=== PATIENT | female | born 1940 | race Caucasian/White ===

== ENCOUNTER 2021-10-26 13:49 | Outpatient (CLI) | payer OTHER, SELFPAY ==
--- NOTE | ~2021-10-26 | US_ITS ---
EXAMINATION: US venous doppler [facility] DATE: 10/26/2021 15:18 INDICATION: worsening edema of left lower leg and now thigh . Erythema. TECHNIQUE: Grayscale images without and with compression and Doppler images of the left lower extremi ty veins were obtained. COMPARISON: None FINDINGS: The left common femoral vein, profunda femoral vein, femoral vein, popliteal vein, posterior tibial v eins, gastrocnemius vein, and greater saphenous vein are patent. Peroneal vein not visualized. IMPRESSION: 1. Peroneal vein not visualized. No evidence of deep venous thrombosis in visualized veins. Reviewed, dictated and finalized at location K. IMPRESSION: 1. Peroneal vein not visualized. No evidence of deep venous thrombosis in visu alized veins.
== END 2021-10-26 13:50 | disposition home or self-care (01) ==
PROVIDERS: PCP Family Medicine Adolescent Medicine; Visit Provider Family Medicine Adolescent Medicine
DX: R60.0 Localized edema (principal)
CPT/HCPCS: 93971

== ENCOUNTER 2021-11-08 12:10 | Inpatient (IN) | payer OTHER, SELFPAY ==
--- NOTE | ~2021-11-08 | XR_ITS ---
XR abdomen/kub 1V DATE: 11/12/2021 10:31 INDICATION: Nausea TECHNIQUE: Portable supine AP view COMPARISON: None FINDINGS: Osteopenia. There is loss of height of T12, L1 and L2 vertebrae with vertebroplasty at L1. Multilevel degenerative disc disease of the lumbar spine. Impression screw device of the left femoral head. There is no evidence of bowel obstruction. The psoas shadows are intact. No visceromegaly is evident. Mild to moderate elevation right diaphragm. The lung bases appear clear. Heart size appears within no rmal range. IMPRESSION: Nonspecific abdomen Reviewed, dictated and finalized at Location A. Reviewed, dictated and finalized at location B. Impression screw device of the left femoral head. There is no evidence of bowel obstruction. The psoas shadows are intact. No vis ceromegaly is evident. Mild to moderate elevation right diaphragm. The lung bases appear clear. Heart size appears within normal range. IMPRESSION: Nonspecific abdomen
--- NOTE | ~2021-11-08 | XR_ITS ---
XR hip LT 2V w AP pelvis DATE: 11/08/2021 13:23 INDICATION: Fall. Left hip pain. TECHNIQUE: AP pelvis. AP and crosstable lateral views of left hip COMPARISON: None FINDINGS: There is diffuse osteopenia. There is levoscoliosis and multilevel degenerative disc disease of the lumbar spine. There is calcifi cation of the abdominal aorta, iliac and femoral arteries. The pubic symphysis and sacroiliac joints are intact. There is a mildly comminuted intertrochanteric left hip fracture with mild varus deformity and apex a nterior angulation. No hip dislocation is noted on either side. IMPRESSION: Acute left intertrochanteric hip fracture Reviewed, dictated and finalized at location B.
--- NOTE | ~2021-11-08 | US_ITS ---
EXAMINATION: US venous doppler [facility] DATE: 11/10/2021 11:06 INDICATION: Left lower limb swelling. TECHNIQUE: Grayscale ultrasound images without and with compression and Doppler ultrasound images of the left lower extremity veins were obtained. COMPARISON: 10/26/2021 FINDINGS: The visualized portions of left common femoral vein, profunda (deep) femoral vein, femoral vein, popl iteal vein, posterior tibial veins and greater saphenous vein outflow are patent. IMPRESSION: 1. No deep venous thrombosis in the left lower limb. Reviewed, dictated and finalized at location A.
--- NOTE | ~2021-11-08 | XR_ITS ---
XR surgery orthopedic DATE: 11/09/2021 13:27 INDICATION: ORIF left intertrochanteric hip fracture TECHNIQUE: 189.7 seconds fluoroscopy time 41.25 mGy COMPARISON: left hip FINDINGS: Compression screw and nail are placed in the proximal left femur, providing near-anatomic p osition and alignment of the intertrochanteric left hip fracture. IMPRESSION: ORIF left intertrochanteric hip fracture Reviewed, dictated and finalized at Location A. Reviewed, dictated and finalized at location B.
--- NOTE | ~2021-11-08 | XR_ITS ---
EXAMINATION: XR hip LT min 2V DATE: 11/09/2021 14:06 INDICATION: Left hip fracture post reduction and internal fixation TECHNIQUE: Anteroposterior and cross-table lateral views of the left hip were obtained. COMPARISON: 11/08/2021 FINDINGS: Interval reduction and internal fixation of a comminuted fracture of the intratrochanteric left femur with antegrade intramedullary lamin, femoral neck dynamic compression screw and distal interlocking sc rew. Alignment appears near-anatomic aside from unchanged 6 mm proximal distraction of the lesser tro chanteric fragment which is not included within the fixation. Mild left hip osteoarthritis. Expected small amount of soft tissue gas the subcutaneous tissues at the proximal lateral left thigh are also few skin jose. IMPRESSION: 1. Near-anatomic alignment post reduction internal fixation of a comminuted intratrochanteric fractur e of the proximal left femur. Reviewed, dictated and finalized at location A. IMPRESSION: 1. Near-anatomic alignment post reduction internal fixation of a comminuted int ratrochanteric fracture of the proximal left femur.
--- NOTE | ~2021-11-08 | CT_ITS ---
EXAMINATION: CT brain wo con INDICATION: Head injury COMPARISON: 06/27/2018 TECHNIQUE: Standard unenhanced head CT. The dose-length product (DLP) was 681.00 mGy-cm. The mA was a djusted according to patient size. Iterative reconstruction technique was employed. FINDINGS: There is a large left parietal scalp hematoma. There is no acute intraparenchymal hemorrhag e. No evidence of mass lesion. No evidence of acute infarction. There is mild periventricular and sub cortical hypodensity probably related to small vessel ischemic disease. There is mild prominence of t he sulci and ventricles related to cerebral atrophy. Intracranial calcified cerebral atherosclerosis is noted. There are no extra-axial collections. There is no mass effect or midline shift. Changes in the globes are likely from ocular lens surgery. The visualized sinuses and mastoid air cells are well aerated. IMPRESSION: 1. Large left parietal scalp hematoma without acute intracranial abnormality. 2. Age related findings. Reviewed, dictated and finalized at location A.
--- NOTE | ~2021-11-08 | XR_ITS ---
EXAMINATION: XR chest 1V portable INDICATION: Pain after fall TECHNIQUE: Portable AP chest at 1333 hours COMPARISON: 06/27/2018 FINDINGS: There is mild atelectasis of the left lung base. No pleural effusion or pneumothorax. The c ardiomediastinal silhouette is normal. There is osteoarthritis of the shoulders. IMPRESSION: 1. Mild atelectasis of the left lung base. Reviewed, dictated and finalized at location A.
--- NOTE | ~2021-11-08 | CT_ITS ---
EXAMINATION: CT cervical spine wo con DATE: 11/08/2021 13:11 INDICATION: Head injury TECHNIQUE: Computed tomography (CT) of the cervical spine was performed without intravenous contrast. The dose-length product (DLP) was 118.39 mGy-cm. Automated exposure control and iterative reconstruc tion technique were employed. COMPARISON: 06/27/2018 FINDINGS: There is no fracture, dislocation, or subluxation. There is severe loss of intervertebral d isc space height from C3-4 through C6-7. The odontoid is intact. There is severe multilevel facet and uncovertebral joint osteoarthritis. IMPRESSION: 1. Severe cervical spondylosis without acute findings or significant interval change. Reviewed, dictated and finalized at location A. IMPRESSION: 1. Severe cervical spondylosis without acute findings or significant interval mariluz walker
[2021-11-08 12:11] VITALS: BP 185/83; PULSE 75; RESP 18; TEMP 36.8; O2SAT 93
[2021-11-08 12:19] VITALS: O2SAT 93
--- NOTE | 2021-11-08 12:47 | ED.GENADULT ---
HPI - General Adult General Chief complaint: Head Injury Stated complaint: HI s/p GLF Time Seen by Provider: 11/08/21 12:43 Source: RN notes reviewed History of Present Illness HPI narrative: Patient presents emerged department from home via EMS for fall. Patient states that she tripped and fell at home landing on her left side. She states that she sustained head injury to the left side of her head as well as a laceration also states that she has pain in her hip. She does not believe that she lost consciousness she states that she had tripped and fell but did not have a syncopal episode she denies any vision changes she denies any chest pain shortness of breath abdominal pain did note some nausea following the fall denies any diarrhea. Patient does states she has chronic edema in the left lower extremity that she has been working with home health to evaluate patient states that she is unsure of her last tetanus shot. She was given Zofran by EMS Related Data Home Medications Medication Instructions Recorded Confirmed escitalopram oxalate 20 mg tablet 20 mg PO DAILY 06/07/21 10/04/21 levothyroxine 125 mcg tablet 125 mcg PO DAILY 11/08/21 11/08/21 Allergies Allergy/AdvReac Type Severity Reaction Status Date / Time No Known Allergies Allergy Verified 11/08/21 12:20 Review of Systems Review of Systems: Gen.: Denies fevers or chills Eyes: Denies eye pain or visual change ENT: Denies congestion Respiratory: Denies shortness of breath or cough CV: Denies chest pain or palpitations GI: Denies abdominal pain emesis or diarrhea recent nausea Musculoskeletal: Reports left hip pain Neuro: Reports head injury Skin: Reports laceration Except as documented, all other systems reviewed and negative [facility] Past Medical History Medical History Age related osteoporosis Chronic pain Generalized anxiety disorder GERD (gastroesophageal reflux disease) Hypertension Hypothyroid Multiple sclerosis Overactive bladder Surgical History Surgical History History of back surgery History of cardiac catheterization 2007 History of surgery on wrist Family History Family History Other Acute myocardial infarction Heart attack Heart disease Hypertension Social History Social History Smoking status: Never smoker Second hand tobacco smoke exposure: No Alcohol intake: never Substance use: never Substance use type: does not use Gender identity (if verbalized by the patient): Female Spiritual care concerns: No Agree to blood products: Yes Exam Narrative: APPEARANCE: No acute distress, nontoxic, resting in bed EYES: EOMI HEENT: Normocephalic, swelling and ecchymosis to the left posterior lateral scalp, 3 cm laceration to the left posterior scalp with moderate venous bleeding no foreign bodies remainder the face is nontender Neck: Supple no midline tenderness palpation tender bilateral perigee muscles C5-7 RESPIRATORY: No respiratory distress Clear to auscultation bilaterally with no rhonchi wheezing or rales. CARDIOVASCULAR: Regular rate and rhythm without murmurs rubs or gallops. ABDOMINAL: Soft, nontender, nondistended, no rebound or guarding MUSCULOSKELETAl: Moves all extremities. No clubbing, cyanosis or edema. Tenderness palpation left anterior and lateral hip pain with movement of the left hip no tenderness of the left knee or ankle dorsalis pedis pulse 2+ neuro vas intact no tenderness of the right lower extremity bilateral upper extremities NEURO: Awake and alert x 4. Following commands, speech normal, no focal deficits SKIN:: Warm, dry. No rashes lesions or abrasions PSYCHIATRIC: Normal affect/mood, Course Course Emergency Course: Discussed with Dr. Santiago presentation work-up agrees wit
[2021-11-08] MEDS: TETANUS,DIPHTHERIA,AC PERTUSSIS ADULT (0.5 ML) BOOSTRIX IM (12:51)
--- NOTE | 2021-11-08 12:53 | PC.NURSE ---
Pt taken to CT and x-ray
--- NOTE | 2021-11-08 13:25 | ECG_ITS ---
Measurements Intervals Squire Rate: 72 P: 50 KS: 167 QRS: -17 QRSD: 106 T: 25 QT: 396 QTc: 436 Interpretive Statements SINUS RHYTHM POOR R-WAVE PROGRESSION ABNORMAL ECG COMPARED TO ECG 06/27/2018 13:37:59 NO SIGNIFICANT CHANGES Electronically Signed On 11-08-2021 15:55:24 CDT by Kimo Bosch M.D.
[2021-11-08 13:45] LABS: Basophils Percent Auto 0.3 % (0.2-1.2); Eosinophils Absolute Auto 0.1 K/mm3 (0-0.3); Eosinophils Percent Auto 1.1 % (0-4.4); Hemoglobin 10.3 g/dL (12.0-15.0); Immature Granulocyte Absolute 0.05 K/mm3 (0.00-0.031); Immature Granulocyte Percent A 0.4 % (0-0.5); Lymphocytes Absolute Auto 1.17 K/mm3 (0.9-3.2); Lymphocytes Percent Auto 10.5 % (18.3-44.2); Mean Corpuscular HGB Conc 32.2 g/dl (32-36); Mean Corpuscular Hemoglobin 29.7 pg (26-34); Mean Corpuscular Volume 92.2 fl (80-100); Monocytes Absolute Auto 0.7 K/mm3 (0.1-0.6); Monocytes Percent Auto 5.8 % (2.6-8.5); Neutrophils Absolute Auto 9.1 K/mm3 (1.3-6.7); Neutrophils Percent Auto 81.9 % (45.5-73.1); Platelet Count Result 301 k/mm3 (150-375); Red Blood Count 3.47 M/mm3 (4.2-5.4); Red Cell Distribution Width 13.5 % (11.5-14.5); White Blood Count 11.2 K/mm3 (4.5-10.0)
[2021-11-08 13:56] LABS: INR 1.4; Prothrombin Time 16.8 Seconds (11.1-14.7)
[2021-11-08 13:57] LABS: Partial Thromboplastin Time 30.6 SECONDS (22.3-36.8)
[2021-11-08 14:03] LABS: Alanine Aminotransferase 37 U/L (6-35); Albumin Level 3.5 g/dL (3.5-5.1); Alkaline Phosphatase 84 U/L (38-126); Anion Gap 4 mmol/L (8-16); Aspartate Amino Transferase 35 U/L (14-36); Bilirubin,Total 0.6 mg/dL (0.2-1.3); Blood Urea Nitrogen 23 mg/dL (7-17); Carbon Dioxide 29 mmol/L (22-30); Chloride 102 mmol/L (98-107); Estimated CRCL calculation 40 ml/min; Estimated Glomerular Filt Rate 60; Glucose 144 mg/dL (65-110); Potassium 3.9 mmol/L (3.4-5.0); Sodium 135 mmol/L (137-145)
[2021-11-08 14:11] LABS: NT Pro B Type Natriuretic Pept 203 pg/mL (5-100)
[2021-11-08 14:28] LABS: SARS-CoV-2 RNA PCR Negative
[2021-11-08] MEDS: ONDANSETRON INJ 4 MG/2 ML VIAL IV PUSH (15:04)
[2021-11-08] MEDS: MORPHINE SULFATE (*CRX) 2 MG/ML INJ IV PUSH (15:04)
[2021-11-08 16:17] VITALS: BP 114/44; PULSE 69; RESP 18; O2SAT 93
[2021-11-08 17:08] VITALS: BMI 24.3
[2021-11-08 17:16] VITALS: BP 149/63; PULSE 78; RESP 16; TEMP 36.8; O2SAT 93
[2021-11-08] MEDS: MORPHINE SULFATE (*CRX) 4 MG/ML INJ IV PUSH ×2 (17:20→21:48)
--- NOTE | 2021-11-08 18:46 | PM.IMHP ---
H&P: HPI History of Present Illness Date/Time: Patient was placed observation status for expected length of stay less than 23 hours for management, will plan to re-evaluate tomorrow for improvement. 11/08/21 18:46 Chief Complaint: Fall Narrative: MS. Cunha is an 81-year-old female who presented to the emergency room after falling today. Patient states that she lost her balance while walking with her walker and fell. Patient states that she was diagnosed with multiple sclerosis in 1977 and has not been able to utilize her left lower extremity very well for quite some time. Patient denies any lightheadedness, dizziness, syncopal, or near syncopal episodes. Patient denies any palpitations, chest discomfort, or shortness of breath. Upon evaluation in emergency room patient was noted to have a laceration to the back of her left head. Patient was also complaining of left hip pain. Patient does have a known history of chronic lymphedema to the left lower extremity for which she has been receiving weekly dressing changes. Patient states last time she had her dressing changed to her left lower extremity was on Monday of last week. Upon evaluation in emergency room patient was noted to have an acute left intratrochanteric hip fracture. Patient underwent CT of the head that showed large left parietal scalp hematoma without acute intracranial abnormality and received 7 jose. 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 Patient states that she follows at [facility] for her multiple sclerosis. Review of Systems Review of Systems: A 12 point review of systems was completed patient all pertinent positive and negative per HPI the remainder are unremarkable. [facility] Past Medical History Medical History Age related osteoporosis Chronic pain Generalized anxiety disorder GERD (gastroesophageal reflux disease) Hypertension Hypothyroid Multiple sclerosis Overactive bladder Surgical History Surgical History History of back surgery History of cardiac catheterization 2007 History of surgery on wrist Family History Family History Other Acute myocardial infarction Heart attack Heart disease Hypertension Social History Social History (Reviewed 11/08/21 @ 12:48 by JACK Reddy Smoking status: Never smoker Second hand tobacco smoke exposure: No Alcohol intake: never Substance use: never Substance use type: does not use Gender identity (if verbalized by the patient): Female Spiritual care concerns: No Agree to blood products: Yes Meds Home Medications and Allergies Home Medications Medication Instructions Recorded Confirmed Type escitalopram oxalate 20 mg tablet 20 mg PO DAILY 06/07/21 11/08/21 History indapamide 2.5 mg tablet 2.5 mg PO DAILY #90 tabs 09/05/21 11/08/21 Rx lisinopril 40 mg tablet 40 mg PO DAILY #90 tabs 09/27/21 11/08/21 Rx metolazone 5 mg tablet 5 mg PO DAILY #30 tabs 10/26/21 11/08/21 Rx hydrocodone 7.5 mg-acetaminophen 1 tablet PO Q6H PRN pain 11/08/21 11/08/21 History 325 mg tablet levothyroxine 125 mcg tablet 125 mcg PO DAILY 11/08/21 11/08/21 History Allergies Allergy/AdvReac Type Severity Reaction Status Date / Time No Known Allergies Allergy Verified 11/08/21 12:20 Vital Signs Vital Signs - 24 hr 11/08/21 12:11 11/08/21 12:19 11/08/21 16:17 Temperature 36.8 C Pulse Rate 75 69 Respiratory Rate 18 18 Blood Pressure 185/83 H 114/44 L Pulse Oximetry 93 93 93 Oxygen Delivery Room Air Room Air 11/08/21 17:16 Temperature 36.8 C Pulse Rate 78 Respiratory Rate 16 Blood Pressure 149/63 H Pulse Oximetry 93 Oxyge
[2021-11-08] MEDS: HYDROcodone/acetaminophen (*CRX) 7.5-325 MG TABLET 1 TAB PO (19:32)
[2021-11-08 19:38] VITALS: BP 129/42; PULSE 81; RESP 18; TEMP 35.6; O2SAT 92
[2021-11-08 20:00] VITALS: PULSE 81; RESP 18; O2SAT 92
--- NOTE | 2021-11-08 20:20 | PC.NURSE ---
PT AND FAMILY STATED THEY DID NOT WANT TO SIGN THE CONSENT UNTIL THE SURGEON AND ANESTHESIOLOGIST WERE AVAILABLE TO EXPLAIN THE PROCEDURE/RISKS WITH THEM. THE UNSIGNED PAPERWORK IS ON THE CHART.
[2021-11-09] VITALS (16 sets, daily range): BP systolic 100–171; BP diastolic 31–69; PULSE 74–97; RESP 14–20; TEMP 36.6–37.9; O2SAT 91–100
[2021-11-09] MEDS: HYDROcodone/acetaminophen (*CRX) 7.5-325 MG TABLET 1 TAB PO (04:31)
[2021-11-09 05:43] LABS: Basophils Percent Auto 0.4 % (0.2-1.2); Eosinophils Absolute Auto 0.3 K/mm3 (0-0.3); Eosinophils Percent Auto 3.4 % (0-4.4); Hematocrit 24.8 % (37.0-47.0); Hemoglobin 8.3 g/dL (12.0-15.0); Immature Granulocyte Absolute 0.04 K/mm3 (0.00-0.031); Immature Granulocyte Percent A 0.4 % (0-0.5); Lymphocytes Percent Auto 25.7 % (18.3-44.2); Mean Corpuscular HGB Conc 33.5 g/dl (32-36); Mean Corpuscular Hemoglobin 30.2 pg (26-34); Mean Corpuscular Volume 90.2 fl (80-100); Mean Platelet Volume 9.4 fl (7.4-10.4); Monocytes Absolute Auto 0.9 K/mm3 (0.1-0.6); Monocytes Percent Auto 9.6 % (2.6-8.5); Neutrophils Absolute Auto 5.4 K/mm3 (1.3-6.7); Neutrophils Percent Auto 60.5 % (45.5-73.1); Platelet Count Result 268 k/mm3 (150-375); Red Blood Count 2.75 M/mm3 (4.2-5.4); Red Cell Distribution Width 13.4 % (11.5-14.5); White Blood Count 8.9 K/mm3 (4.5-10.0)
[2021-11-09 05:53] LABS: Alanine Aminotransferase 27 U/L (6-35); Albumin Level 2.9 g/dL (3.5-5.1); Alkaline Phosphatase 57 U/L (38-126); Anion Gap 3 mmol/L (8-16); Aspartate Amino Transferase 25 U/L (14-36); Bilirubin,Total 0.9 mg/dL (0.2-1.3); Blood Urea Nitrogen 25 mg/dL (7-17); Calcium 8.4 mg/dL (8.4-10.2); Carbon Dioxide 30 mmol/L (22-30); Chloride 100 mmol/L (98-107); Estimated CRCL calculation 32 ml/min; Estimated Glomerular Filt Rate 48; Glucose 96 mg/dL (65-110); Sodium 133 mmol/L (137-145)
[2021-11-09] MEDS: LEVOTHYROXINE SODIUM 125 MCG TABLET PO (05:54)
[2021-11-09] MEDS: MORPHINE SULFATE (*CRX) 4 MG/ML INJ IV PUSH (05:56)
--- NOTE | 2021-11-09 07:12 | WPDHPUPDATE1 ---
History and Physical Update Update Date/Time: 11/09/21 07:12 History and Physical has been reviewed, including an updated exam of the patient. There are NO changes in the patient's condition. Risks, benefits, and alternatives have been discussed and questions answered. Patient agrees to proceed with procedure.
[2021-11-09] MEDS: ESCITALOPRAM OXALATE 10 MG TABLET 20 MG PO (08:04)
--- NOTE | 2021-11-09 08:04 | PC.NURSE ---
spoke with nurse in PACU who said to give only lexapro before surgery. will give the rest of her morning medications post op when she returns to [address] [place] [address]
--- NOTE | 2021-11-09 08:47 | PM.CNOR ---
Assessment and Plan Assessment and plan (1) Closed intertrochanteric fracture of left hip: Code(s): S72.142A - Displaced intertrochanteric fracture of left femur, initial encounter for closed fracture Status: Acute Assessment and Plan: Radiographs of the left hip reveal an acute left intertrochanteric hip fracture. The fracture type and injury as well as radiographs discussed with the patient and family. Operative and nonoperative treatment options reviewed. The patient/family elects for operative treatment. Discussed Left IT Nail Risks of surgery including but not limited to neurovascular damage, wound complications, blood clot, pulmonary embolus, stroke, myocardial infarction, anesthetic risks up to and including were reviewed. Continued pain and possible dysfunction were explained. No guarantees were offered. The patient understands and wishes to proceed. Plan: Left IT Nail by Dr. Santiago NPO Obtain consent Type & Screen Pain control Bedrest Dispo: Patient's daughter is a RN and desires to take patient home following hospitalization. Discussed possible need for higher level of care in an acute rehab given history of MS now with fracture and diminished mobility at baseline. At minimum, patient will require HH for PT/OT. Discussed with patient/family that we will discuss further following surgery after fully assessing mobility/medical condition. (2) Laceration of scalp: Code(s): S01.01XA - Laceration without foreign body of scalp, initial encounter Status: Acute Assessment and Plan: Closed with jose. (3) Venous insufficiency of both lower extremities: Code(s): I87.2 - Venous insufficiency (chronic) (peripheral) Status: Acute (4) Lymphedema: Code(s): I89.0 - Lymphedema, not elsewhere classified Status: Acute Assessment and Plan: Bilateral lower extremity lymphedema. Chronic. Undergoes lymphedema wrapping once weekly. (5) Spinal stenosis, lumbar region without neurogenic claudication: Code(s): M48.061 - Spinal stenosis, lumbar region without neurogenic claudication Status: Acute (6) Multiple sclerosis: Code(s): G35 - Multiple sclerosis Status: Acute Assessment and Plan: Chronic weakness of the left side, multiple falls. Minimal mobility at baseline. Utilizes walker. Additional Plan Reviewed radiographs, assessment and nonoperative vs. operative treatment options with consulted surgeon and attending MD, Dr. Santiago. No further recommendations at this time. Per Dr. Bicalho, he has discussed treatment options with the patient's daughter. He will evaluate patient/further discuss prior to surgical intervention. History of Present Illness HPI Consult date: 11/09/21 Chief complaint: Left intertrochanteric hip fracture/l scalp fractu Narrative: 81-year-old female presented to the emergency room from home after a fall yesterday. Patient had difficulty while utilizing her walker and went down to reach something and fell backwards. She hit her head as well and has a laceration at the back of her head which is now closed with jose. Patient was unable to bear weight on the left lower extremity. Radiographs of the left lower extremity in the emergency room reveal an acute left intertrochanteric hip fracture. Patient has a history of multiple sclerosis and lymphedema. She has left lower extremity weakness and limitations with plantar flexion and dorsiflexion of the left foot at baseline. She undergoes lymphedema wrapping weekly. Review of Systems Constitutional: Constitutional: Reports no additional constitutional complaints, Denies chills, Denies fatigue, Denies fever(s), Denies headache(s) and Denies weakness Eyes: Eyes: Denies change in vision ENT: Reports Normal hearing present and Denies headache(s) Cardiovascular: Cardiovascular: Denies chest pain and Denies dyspnea Respiratory: Respiratory: Denies cough, Den
--- NOTE | 2021-11-09 10:53 | PM.IMPN ---
Progress Note: A&P Assessment and Plan (1) Closed intertrochanteric fracture of left hip: Code(s): S72.142A - Displaced intertrochanteric fracture of left femur, initial encounter for closed fracture Status: Acute Assessment and Plan: from mechanical fall Orthopedic surgery consulted status post left hip nailing 11/09/2021 (2) Laceration of scalp: Code(s): S01.01XA - Laceration without foreign body of scalp, initial encounter Status: Acute Assessment and Plan: Patient did receive jose while in the emergency room for the laceration to her scalp. These will need to be removed in 7-10 days. (3) Multiple sclerosis: Code(s): G35 - Multiple sclerosis Status: Acute Assessment and Plan: Patient follows at [facility] for her multiple sclerosis. Patient states she has not been on medications for a few years since medications were discontinued secondary to age and interactions with other medications. (4) Hypertension: Code(s): I10 - Essential (primary) hypertension Status: Acute Assessment and Plan: resume home medication which include lisinopril and metolazone and indapamide Plan chronic lymphedema left lower extremity Anxiety depression Multiple sclerosis Hypertension Hypo thyroidism DVT prophylaxis need to be planned post surgery Subjective Date/time seen: 11/09/21 10:53 Interval history: HPI:MS. Cunha is an 81-year-old female who presented to the emergency room after falling today.? Patient states that she lost her balance while walking with her walker and fell.? Patient states that she was diagnosed with multiple sclerosis in 1977 and has not been able to utilize her left lower extremity very well for quite some time.? Patient denies any lightheadedness, dizziness, syncopal, or near syncopal episodes.? Patient denies any palpitations, chest discomfort, or shortness of breath.? Upon evaluation in emergency room patient was noted to have a laceration to the back of her left head.? Patient was also complaining of left hip pain.? Patient does have a known history of chronic lymphedema to the left lower extremity for which she has been receiving weekly dressing changes.? Patient states last time she had her dressing changed to her left lower extremity was on Monday of last week.? Upon evaluation in emergency room patient was noted to have an acute left intratrochanteric hip fracture.? Patient underwent CT of the head that showed large left parietal scalp hematoma without acute intracranial abnormality and received 7 jose. 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 Patient states that she follows at [facility] for her multiple sclerosis. 11/09/2021 Patient seen postop. she is working with physical therapy and set to the chair. Complains of pain in her left hip. Denies any chest pain or shortness of breath Review of Systems Review of Systems: All systems reviewed & are unremarkable except as noted in HPI and below ( HPI) Exam Narrative: Constitutional: Patient is well-nourished in no acute distress. Patient is alert and oriented x3 HEENT: Moist mucous membranes. No scleral icterus. No lymphadenopathy. Neck: No carotid bruits noted no JVD noted Lungs: Lung sounds are clear to auscultation bilaterally. No accessory muscle use. No rhonchi, rales, or wheezes noted. Cardiovascular: Apical pulse is regular rate and rhythm. S1-S2 noted, no S3 or S4 noted. No gallops, murmurs, or rubs noted. Abdomen: Soft, round, and nontender. No palpable masses. Extremities: Patient does have a dressing to her left lower extremity that is dry and intact. Patient's left lower extremity is shortened and externally rotated. Skin: Patient has a laceration with jose int
[2021-11-09] MEDS: TRANEXAMIC ACID 1,000MG/ISO100 1,000 MG/100 ML BAG 200 MG IVPB (11:22)
--- NOTE | 2021-11-09 11:38 | WPDANESEPPF ---
Anes - Initial Pre Proc Eval Procedure: Operation Date: 11/09/21 12:00 Proposed Procedures p Left Intertrochanteric Nail - Jaya Santiago MD Date/Time: 11/09/21 11:38 Surgeon: Josef Irwin MD Pre Op Diagnosis: Left intertrochanteric hip fracture/l scalp fractu Patient Data Age: 81 Gender: F Height: 1.65 m Weight: 66.4 kg Last Vital Signs Temp 100.3 F H 11/09/21 11:19 Pulse 84 11/09/21 11:19 Resp 14 11/09/21 11:19 BP 109/31 L 11/09/21 11:19 Pulse Ox 99 11/09/21 11:19 O2 Del Method Room Air 11/09/21 11:19 Allergies Allergy/AdvReac Type Severity Reaction Status Date / Time No Known Allergies Allergy Verified 11/08/21 12:20 Home Medications Medication Instructions Recorded Confirmed Type escitalopram oxalate 20 mg tablet 20 mg PO DAILY 06/07/21 11/08/21 History indapamide 2.5 mg tablet 2.5 mg PO DAILY #90 tabs 09/05/21 11/08/21 Rx lisinopril 40 mg tablet 40 mg PO DAILY #90 tabs 09/27/21 11/08/21 Rx metolazone 5 mg tablet 5 mg PO DAILY #30 tabs 10/26/21 11/08/21 Rx hydrocodone 7.5 mg-acetaminophen 1 tablet PO Q6H PRN pain 11/08/21 11/08/21 History 325 mg tablet levothyroxine 125 mcg tablet 125 mcg PO DAILY 11/08/21 11/08/21 History Laboratory Tests 11/08/21 11/08/21 11/08/21 13:33 13:41 13:41 WBC 11.2 K/mm3 H K/mm3 (4.5-10.0) RBC 3.47 M/mm3 L M/mm3 (4.2-5.4) Hgb 10.3 g/dL L g/dL (12.0-15.0) Hct 32.0 % L % (37.0-47.0) MCV 92.2 fl fl (80-100) MCH 29.7 pg pg (26-34) MCHC 32.2 g/dl g/dl (32-36) RDW 13.5 % % (11.5-14.5) Plt Count 301 k/mm3 k/mm3 (150-375) MPV 9.0 fl fl (7.4-10.4) Immature Gran % (Auto) 0.4 % % (0-0.5) Neut % (Auto) 81.9 % H % (45.5-73.1) Lymph % (Auto) 10.5 % L % (18.3-44.2) [place] % (Auto) 5.8 % % (2.6-8.5) Eos % (Auto) 1.1 % % (0-4.4) Baso % (Auto) 0.3 % % (0.2-1.2) Lymph # (Auto) 1.17 K/mm3 K/mm3 (0.9-3.2) [place] # (Auto) 0.7 K/mm3 H K/mm3 (0.1-0.6) Eos # (Auto) 0.1 K/mm3 K/mm3 (0-0.3) Baso # (Auto) 0.0 K/mm3 K/mm3 (0.0-0.1) Abs Immat Gran (auto) 0.05 K/mm3 H K/mm3 (0.00-0.031) Absolute Neuts (auto) 9.1 K/mm3 H K/mm3 (1.3-6.7) Absolute Nucleated RBC 0.0 K/mm3 K/mm3 (0.0-0.012) Nucleated RBC % 0.0 % % (0.0-0.2) PT 16.8 Seconds H Seconds (11.1-14.7) INR 1.4 APTT 30.6 SECONDS SECONDS (22.3-36.8) Sodium Potassium Chloride Carbon Dioxide Anion Gap BUN Creatinine Estim Creat Clear Calc Estimated GFR Glucose Calcium Total Bilirubin AST ALT Alkaline Phosphatase NT-Pro-B Natriuret Pep Total Protein Albumin SARS-CoV-2 RNA (RT-PCR) Negative Blood Type Antibody Screen 11/08/21 11/08/21 11/09/21 13:41 13:41 05:22 WBC 8.9 K/mm3 K/mm3 (4.5-10.0) RBC 2.75 M/mm3 L M/mm3 (4.2-5.4) Hgb 8.3 g/dL L g/dL (12.0-15.0) Hct 24.8 % L % (37.0-47.0) MCV 90.2 fl fl (80-100) MCH 30.2 pg pg (26-34) MCHC 33.5 g/dl g/dl (32-36) RDW 13.4 % % (11.5-14.5) Plt Count 268 k/mm3 k/mm3 (150-375) MPV 9.4 fl fl (7.4-10.4) Immature Gran % (Auto) 0.4 % % (0-0.5) Neut % (Auto) 60.5 % % (45.5-73.1) Lymph % (Auto) 25.7 % % (18.3-44.2) [place] % (Auto) 9.6 % H % (2.6-8.5) Eos % (Auto) 3.4 % % (0-4.4) Baso % (Auto) 0.4 % % (0.2-1.2) Lymph # (Auto) 2.30 K/mm3 K/mm3 (0.9-3.2) [place] # (Auto) 0.9 K/mm3 H K/mm3 (0.1-0.
[2021-11-09] MEDS: LACTATED RINGERS 1,000 ML 30 ML IV CONT (12:14)
[2021-11-09] MEDS: ceFAZolin 2 GM/D5W 50 ML 2 GM/50 ML BAG IVPB ×2 (12:15→19:38)
--- NOTE | 2021-11-09 13:51 | W.PM.PROC2 ---
Procedure Note - Detailed Date of Procedure 11/09/21 Pre-op Diagnosis Left intertrochanteric femur fracture Post-op Diagnosis Same Procedure Performed INSERTION ALICJA LEFT HIP Surgeon Jaya Santiago MD Anesthesia General Description of Procedure THE PATIENT WAS TAKEN TO THE OPERATING ROOM AND PLACED ON A FRACTURE TABLE AFTER GIVEN GENERAL ANESTHESIA. THE LEFT LOWER EXTREMITY WAS PLACED IN A TRACTION BOOT AND USING SOME TRACTION AND INTERNAL ROTATION THE INNER TROCHANTERIC FRACTURE WAS REDUCED TO ANATOMIC POSITION. NEXT THE LEFT LOWER EXTREMITY WAS PREPPED AND DRAPED IN THE STERILE FASHION. AN INCISION WAS MADE PROXIMAL TO THE TIP OF THE GREATER TROCHANTER AND DISSECTION CONTINUED TILL THE TIP OF THE GREATER TROCHANTER WAS PALPATED. A GUIDE PIN WAS PLACED DOWN THE FEMORAL CANAL AND PAST THE FRACTURE SITE. THIS WAS CHECKED ON FLUOROSCOPY AND FOUND TO BE IN GOOD POSITION. AN INITIAL REAMER WAS USED TO REAM THE FEMORAL CANAL. A 10 BY 200 MM ARTHREX ALICJA WAS INSERTED TILL THE CORRECT POSITION WAS IDENTIFIED ON XRAY. A GUIDE PIN WAS INSERTED THROUGH THE FEMORAL NECK AT [address] TILL IT REACHED THE TIP OF THE SUB CHONDRAL BONE SEEN ON XRAY. AFTER REAMING, LAG SCREW WAS INSERTED MEASURING 95 MM. XRAYS SHOWED IT TO BE IN GOOD POSITION. THE LAG SCREW WAS LOCKED PROXIMALLY WITH A LOCKING SCREW. NEXT A DISTAL LOCKING SCREW WAS PLACED ACROSS THE ALICJA AND WAS IN GOOD POSITION ON XRAY. THE TRACTION WAS RELEASED. THE WOUNDS WERE WASHED. THE DEEP FASCIA WAS REPAIRED WITH 0 VICRYL SUTURE, THE SUB CUTANEOUS LAYER WITH 2-0 VICRYL, AND THE SKIN WITH JULES. THE WOUNDS WERE WASHED AND THEN STERILE DRESSING WAS APPLIED. PATIENT WAS EXTUBATED AND SENT TO RECOVERY ROOM. Estimated Blood Loss 100 Urine Output 0 Complications No immediate complications Condition Stable Disposition PACU
--- NOTE | 2021-11-09 14:32 | SUR.PHASEI ---
Simple mask removed at 1430.
--- NOTE | 2021-11-09 14:35 | SUR.PHASEI ---
Dr. Almodovar is aware of high BP. He's ok with patient going back to the floor and getting lisinopril there.
[2021-11-09] MEDS: metOLazone 5 MG TABLET PO (15:36)
[2021-11-09] MEDS: KCL 20 MEQ/D5/0.45% SOD CHL 1,000 ML 80 ML IV CONT (15:36)
[2021-11-09] MEDS: INDAPAMIDE 2.5 MG TABLET PO (15:36)
[2021-11-09] MEDS: lisinopriL 20 MG TABLET 40 MG PO (15:36)
[2021-11-09] MEDS: ONDANSETRON INJ 4 MG/2 ML VIAL IV PUSH (15:50)
[2021-11-09] MEDS: SENNA/DOCUSATE SODIUM TABLET 2 TAB PO (17:14)
[2021-11-09] MEDS: HYDROcodone/acetaminophen (*CRX) 5-325 MG TABLET 1 TAB PO (17:17)
[2021-11-09 18:09] LABS: Appearance Urine Clear (Clear); Bilirubin Urine 1+ (Negative); Blood Urine Negative (Negative); Color Urine Yellow (Yellow); Glucose Urine UA Negative (Negative); Ketones Urine 1+ mg/dL (Negative); Leukocyte Esterase Ur Negative LEU/UL (Negative); Nitrate Urine Negative (Negative); Protein Urine Negative (Negative); Specific Grav Ur 1.025 (1.001-1.035); pH Urine 5.5 (5.0-9.0)
[2021-11-09 18:20] LABS: Mucus Urine Rare /lpf; Squamous Epithelial Cell Urine Few /hpf (Few); WBC Urine 0-3 /hpf
[2021-11-09 18:23] LABS: Add Urine Microscopic? YES
[2021-11-09] MEDS: HEPARIN SODIUM 5,000 UNITS/ML VIAL 5000 UNITS SUB-Q (20:37)
[2021-11-10] VITALS (14 sets, daily range): BP systolic 96–160; BP diastolic 26–72; PULSE 72–90; RESP 14–20; TEMP 36.9–37.3; O2SAT 95–100
[2021-11-10] MEDS: HYDROcodone/acetaminophen (*CRX) 5-325 MG TABLET 1 TAB PO ×5 (02:41→21:09)
[2021-11-10] MEDS: ceFAZolin 2 GM/D5W 50 ML 2 GM/50 ML BAG IVPB ×2 (04:22→13:42)
[2021-11-10] MEDS: LEVOTHYROXINE SODIUM 125 MCG TABLET PO (05:50)
[2021-11-10 06:06] LABS: Basophils Percent Auto 0.3 % (0.2-1.2); Immature Granulocyte Absolute 0.04 K/mm3 (0.00-0.031); Immature Granulocyte Percent A 0.5 % (0-0.5); Lymphocytes Absolute Auto 1.34 K/mm3 (0.9-3.2); Lymphocytes Percent Auto 15.1 % (18.3-44.2); Mean Corpuscular Hemoglobin 29.2 pg (26-34); Mean Corpuscular Volume 91.2 fl (80-100); Mean Platelet Volume 9.7 fl (7.4-10.4); Monocytes Absolute Auto 1.1 K/mm3 (0.1-0.6); Monocytes Percent Auto 12.5 % (2.6-8.5); Neutrophils Absolute Auto 6.4 K/mm3 (1.3-6.7); Neutrophils Percent Auto 71.6 % (45.5-73.1); Platelet Count Result 206 k/mm3 (150-375); Red Blood Count 2.26 M/mm3 (4.2-5.4); Red Cell Distribution Width 13.4 % (11.5-14.5); White Blood Count 8.9 K/mm3 (4.5-10.0)
[2021-11-10 06:09] LABS: Hemoglobin 6.6 g/dL (12.0-15.0)
[2021-11-10 06:10] LABS: Hematocrit 20.6 % (37.0-47.0)
[2021-11-10 06:17] LABS: Anion Gap 4 mmol/L (8-16); Blood Urea Nitrogen 21 mg/dL (7-17); Calcium 7.9 mg/dL (8.4-10.2); Carbon Dioxide 28 mmol/L (22-30); Chloride 100 mmol/L (98-107); Estimated CRCL calculation 38 ml/min; Estimated Glomerular Filt Rate 60; Glucose 130 mg/dL (65-110); Potassium 3.7 mmol/L (3.4-5.0); Sodium 132 mmol/L (137-145)
--- NOTE | 2021-11-10 08:04 | PM.IMPN ---
Progress Note: A&P Assessment and Plan (1) Closed intertrochanteric fracture of left hip: Code(s): S72.142A - Displaced intertrochanteric fracture of left femur, initial encounter for closed fracture Status: Acute Assessment and Plan: from mechanical fall Orthopedic surgery consulted status post left hip nailing 11/09/2021 (2) Laceration of scalp: Code(s): S01.01XA - Laceration without foreign body of scalp, initial encounter Status: Acute Assessment and Plan: Patient did receive jose while in the emergency room for the laceration to her scalp. These will need to be removed in 7-10 days. (3) Multiple sclerosis: Code(s): G35 - Multiple sclerosis Status: Acute Assessment and Plan: Patient follows at [facility] for her multiple sclerosis. Patient states she has not been on medications for a few years since medications were discontinued secondary to age and interactions with other medications. (4) Hypertension: Code(s): I10 - Essential (primary) hypertension Status: Acute Assessment and Plan: resume home medication which include lisinopril and metolazone and indapamide (5) Postoperative anemia: Code(s): D64.9 - Anemia, unspecified Status: Acute (6) Lymphedema: Code(s): I89.0 - Lymphedema, not elsewhere classified Status: Acute Plan chronic lymphedema left lower extremity complained of pain today. Venous duplex order to rule out DVT. Anxiety depression Multiple sclerosis Hypertension Hypo thyroidism DVT prophylaxis heparin subQ will hold due to acute postoperative anemia Acute postoperative anemia hemoglobin 6.6. No other signs of bleeding seen. Likely postoperative anemia will transfuse 1 unit of PRBC today recheck and monitor. Vitals stable Additional Plan Subjective Date/time seen: 11/10/21 08:04 Interval history: HPI:MS. Cunha is an 81-year-old female who presented to the emergency room after falling today.? Patient states that she lost her balance while walking with her walker and fell.? Patient states that she was diagnosed with multiple sclerosis in 1977 and has not been able to utilize her left lower extremity very well for quite some time.? Patient denies any lightheadedness, dizziness, syncopal, or near syncopal episodes.? Patient denies any palpitations, chest discomfort, or shortness of breath.? Upon evaluation in emergency room patient was noted to have a laceration to the back of her left head.? Patient was also complaining of left hip pain.? Patient does have a known history of chronic lymphedema to the left lower extremity for which she has been receiving weekly dressing changes.? Patient states last time she had her dressing changed to her left lower extremity was on Monday of last week.? Upon evaluation in emergency room patient was noted to have an acute left intratrochanteric hip fracture.? Patient underwent CT of the head that showed large left parietal scalp hematoma without acute intracranial abnormality and received 7 jose. 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 Patient states that she follows at [facility] for her multiple sclerosis. 11/09/2021 Patient seen postop. she is working with physical therapy and set to the chair. Complains of pain in her left hip. Denies any chest pain or shortness of breath 11/10/2021 postoperative day 1. Complain of left lower extremity pain. Reports it might be because of the pump that she had. She has history of left lower leg lymphedema. Denies any chest pain or shortness of breath. Labs were reviewed. She is getting 1 unit of PRBC today Review of Systems Review of Systems: All systems reviewed & are unremarkable except as noted in HPI and below Nicole
--- NOTE | 2021-11-10 08:33 | PCOTNOTE ---
Attempted to see pt. for occupational therapy evaluation. Per nurse pt. hemoglobin is too low and pt. will be receiving treatment today to resolve. Pt. can be seen after issue has resolved. Will follow.
[2021-11-10] MEDS: ESCITALOPRAM OXALATE 10 MG TABLET 20 MG PO (09:06)
[2021-11-10] MEDS: HEPARIN SODIUM 5,000 UNITS/ML VIAL 5000 UNITS SUB-Q (09:08)
--- NOTE | 2021-11-10 09:47 | WPDANESPN ---
Anes - Prog Note Post-Op Date/Time: 11/10/21 09:47 Vital Signs: Last Vital Signs Temp 37.0 C 11/10/21 04:14 Pulse 72 11/10/21 04:14 Resp 18 11/10/21 04:14 BP 96/42 L 11/10/21 04:14 Pulse Ox 100 11/10/21 04:14 O2 Del Method Nasal Cannula 11/09/21 20:00 O2 Flow Rate 2 11/09/21 20:00 Pain Score (VAS): 0 I/O: Intake & Output 11/09/21 11/10/21 11/10/21 23:59 07:59 15:59 Intake Total 530 120 240 Output Total 100 500 Balance 430 -380 240 Laboratory Tests 11/10/21 05:37 11/10/21 05:37 11/08/21 11/09/21 11/10/21 13:41 17:44 05:37 WBC 8.9 RBC 2.26 L Hgb 6.6 L* Hct 20.6 L* MCV 91.2 MCH 29.2 MCHC 32.0 RDW 13.4 Plt Count 206 MPV 9.7 Immature Gran % (Auto) 0.5 Neut % (Auto) 71.6 Lymph % (Auto) 15.1 L [place] % (Auto) 12.5 H Eos % (Auto) 0.0 Baso % (Auto) 0.3 Lymph # (Auto) 1.34 [place] # (Auto) 1.1 H Eos # (Auto) 0.0 Baso # (Auto) 0.0 Abs Immat Gran (auto) 0.04 H Absolute Neuts (auto) 6.4 Absolute Nucleated RBC 0.0 Nucleated RBC % 0.0 Sodium Potassium Chloride Carbon Dioxide Anion Gap BUN Creatinine Estim Creat Clear Calc Estimated GFR Glucose Calcium Urine Color Yellow Urine Appearance Clear Urine pH 5.5 Ur Specific [place] 1.025 Urine Protein Negative Urine Glucose (UA) Negative Urine Ketones 1+ H Ur Blood (Man) Negative Urine Nitrate Negative Urine Bilirubin 1+ H Urine Urobilinogen 2.0 H Leukocyte Esterase Rfl Negative Urine RBC 3-5 H Urine WBC 0-3 Ur Squamous Epith Cells Few Hyaline Casts 1-2 Urine Mucus Rare Blood Type O Positive Antibody Screen Negative Crossmatch See Detail 11/10/21 05:37 WBC RBC Hgb Hct MCV MCH MCHC RDW Plt Count MPV Immature Gran % (Auto) Neut % (Auto) Lymph % (Auto) [place] % (Auto) Eos % (Auto) Baso % (Auto) Lymph # (Auto) [place] # (Auto) Eos # (Auto) Baso # (Auto) Abs Immat Gran (auto) Absolute Neuts (auto) Absolute Nucleated RBC Nucleated RBC % Sodium 132 L Potassium 3.7 Chloride 100 Carbon Dioxide 28 Anion Gap 4 L BUN 21 H Creatinine 0.90 Estim Creat Clear Calc 38 Estimated GFR 60 Glucose 130 H Calcium 7.9 L Urine Color Urine Appearance Urine pH Ur Specific [place] Urine Protein Urine Glucose (UA) Urine Ketones Ur Blood (Man) Urine Nitrate Urine Bilirubin Urine Urobilinogen Leukocyte Esterase Rfl Urine RBC Urine WBC Ur Squamous Epith Cells Hyaline Casts Urine Mucus Blood Type Antibody Screen Crossmatch Patient Feedback: Patient satisfied with anesthetic care.
[2021-11-10] MEDS: SODIUM CHLORIDE 0.9% IV 250 ML 30 ML IV CONT (09:55)
--- NOTE | 2021-11-10 13:02 | PM.PNORT ---
Progress Note: A&P Assessment and Plan (1) Closed intertrochanteric fracture of left hip: Code(s): S72.142A - Displaced intertrochanteric fracture of left femur, initial encounter for closed fracture Status: Acute Plan POD 1 DOING WELL WITH GOOD PAIN CONTROL. CONTINUE PRBCs SHE WILL CONTINUE WITH PT TOLERATED. Subjective Subjective Date/Time Seen: 11/10/21 13:02 POD 1 DOING WELL. SHE HAS POSTOP ANEMIA AND IS RECEIVING BLOOD. NO CALF PAIN Exam Extrem: Other: VSS AFEBRILE DRESSING DRY LEFT LEG SWELLING DECREASED, CALF SOFT NON TENDER Objective Data Vital Signs Vital Signs: Vital Signs - 24 hr 11/09/21 13:51 11/09/21 13:57 11/09/21 14:05 Temperature 36.8 C Pulse Rate 97 84 84 Respiratory Rate 16 14 14 Blood Pressure 144/48 H 153/69 H 171/59 H Pulse Oximetry 100 100 100 Oxygen Delivery Simple Face Mask Simple Face Mask Simple Face Mask Oxygen Flow Rate 6 6 6 11/09/21 14:20 11/09/21 14:35 11/09/21 14:50 Temperature Pulse Rate 83 87 83 Respiratory Rate 14 14 16 Blood Pressure 166/67 H 162/62 H 165/59 H Pulse Oximetry 98 96 99 Oxygen Delivery Simple Face Mask Nasal Cannula Nasal Cannula Oxygen Flow Rate 6 2 2 11/09/21 15:00 11/09/21 15:17 11/09/21 15:32 Temperature 36.6 C 36.7 C Pulse Rate 85 88 82 Respiratory Rate 14 14 16 Blood Pressure 169/62 H 152/59 H 147/52 H Pulse Oximetry 99 96 100 Oxygen Delivery Nasal Cannula Oxygen Flow Rate 2 11/09/21 16:02 11/09/21 16:09 11/09/21 17:02 Temperature 36.8 C 36.7 C Pulse Rate 82 81 Respiratory Rate 16 20 Blood Pressure 145/51 H 137/51 L Pulse Oximetry 100 97 Oxygen Delivery Room Air Oxygen Flow Rate 11/09/21 19:55 11/09/21 20:10 11/09/21 20:00 Temperature 36.9 C Pulse Rate 74 74 Respiratory Rate 18 18 Blood Pressure 119/46 L Pulse Oximetry 92 96 96 Oxygen Delivery Nasal Cannula Nasal Cannula Oxygen Flow Rate 2 2 11/10/21 00:07 11/10/21 04:14 11/10/21 09:59 Temperature 37.0 C 37.0 C 37.3 C Pulse Rate 81 72 87 Respiratory Rate 18 18 16 Blood Pressure 132/48 L 96/42 L 97/30 L Pulse Oximetry 97 100 95 Oxygen Delivery Oxygen Flow Rate 11/10/21 08:00 11/10/21 10:15 11/10/21 10:15 Temperature 37.3 C 37.3 C Pulse Rate 87 87 Respiratory Rate 14 14 Blood Pressure 100/29 L 100/29 L Pulse Oximetry 96 96 Oxygen Delivery Room Air Oxygen Flow Rate 11/10/21 11:15 11/10/21 12:15 11/10/21 12:40 Temperature 37.3 C 37.2 C 37.3 C Pulse Rate 84 90 87 Respiratory Rate 14 14 16 Blood Pressure 101/33 L 101/26 L 113/34 L Pulse Oximetry 96 96 95 Oxygen Delivery Oxygen Flow Rate 11/10/21 12:50 Temperature Pulse Rate Respiratory Rate Blood Pressure 130/50 L Pulse Oximetry Oxygen Delivery Oxygen Flow Rate Intake/Output Intake/Output: Intake & Output 11/07/21 11/08/21 11/09/21 11/10/21 23:59 23:59 23:59 23:59 Intake Total 100 880 950 Output Total 0 180 500 Balance 100 700 450 Meds/Results Medications: Active Medications Generic Name Dose Route Start Last Admin Trade Name Mark Anthonyq PRN Reason Stop Dose Admin Acetaminophen 650 mg 11/09/21 15:07 Acetaminophen 325 Mg Tablet PO Q6H PRN Mild Pain (1-3) or Fever Hydrocodone Bitart/Acetaminophen 1 tab 11/09/21 15:07 11/10/21 09:12 Hydrocodone/Acetaminophen (*Crx) 5-325 Mg Tablet PO 1 tab Q3H PRN Administration Pain Rated 4-6 Diazepam 5 mg 11/09/21 15:07 Diazepam (*Crx) 5 Mg Tablet PO Q8H PRN Muscle Spasm Escitalopram Oxalate 20 mg 11/09/21 09:00 11/10/21 09:06 Escitalopram Oxalate 10 Mg Tablet PO 20 mg DAILY [place] Administration Heparin Sodium (Porcine) 5,000 units 11/09/21 21:00 11/10/21 09:08 Heparin Sodium 5,000 Units/Ml Vial SUB-Q 5,000 units Q12HR [place] Administration Sodium Chloride 250 mls @ 30 mls/hr 11/10/21 07:41 Normal Saline Iv IV CONT 11/10/21 16:00 .Q8H20M STA Indapamide 2.5 mg 11/09/21 09:00 11/10/21
[2021-11-10] MEDS: MORPHINE SULFATE (*CRX) 4 MG/ML INJ 3 MG IV PUSH (15:55)
[2021-11-10] MEDS: SENNA/DOCUSATE SODIUM TABLET 2 TAB PO (16:01)
[2021-11-11 02:34] VITALS: BP 144/51; PULSE 85; RESP 16; TEMP 36.9; O2SAT 95
[2021-11-11 05:12] VITALS: BP 149/56; PULSE 89; RESP 20; TEMP 37.5; O2SAT 95
[2021-11-11] MEDS: ONDANSETRON INJ 4 MG/2 ML VIAL IV PUSH ×3 (05:54→18:18)
[2021-11-11] MEDS: LEVOTHYROXINE SODIUM 125 MCG TABLET PO (05:55)
[2021-11-11] MEDS: HYDROcodone/acetaminophen (*CRX) 5-325 MG TABLET 1 TAB PO ×2 (06:36→18:18)
[2021-11-11 06:37] LABS: Basophils Percent Auto 0.4 % (0.2-1.2); Eosinophils Absolute Auto 0.5 K/mm3 (0-0.3); Hematocrit 24.8 % (37.0-47.0); Hemoglobin 8.2 g/dL (12.0-15.0); Immature Granulocyte Absolute 0.05 K/mm3 (0.00-0.031); Immature Granulocyte Percent A 0.5 % (0-0.5); Lymphocytes Absolute Auto 2.08 K/mm3 (0.9-3.2); Lymphocytes Percent Auto 20.6 % (18.3-44.2); Mean Corpuscular HGB Conc 33.1 g/dl (32-36); Mean Corpuscular Hemoglobin 29.5 pg (26-34); Mean Corpuscular Volume 89.2 fl (80-100); Mean Platelet Volume 10.1 fl (7.4-10.4); Monocytes Absolute Auto 1.3 K/mm3 (0.1-0.6); Monocytes Percent Auto 12.9 % (2.6-8.5); Neutrophils Absolute Auto 6.1 K/mm3 (1.3-6.7); Neutrophils Percent Auto 60.6 % (45.5-73.1); Platelet Count Result 237 k/mm3 (150-375); Red Blood Count 2.78 M/mm3 (4.2-5.4); White Blood Count 10.1 K/mm3 (4.5-10.0)
[2021-11-11 06:48] LABS: Alanine Aminotransferase 13 U/L (6-35); Albumin Level 2.7 g/dL (3.5-5.1); Alkaline Phosphatase 54 U/L (38-126); Anion Gap 3 mmol/L (8-16); Aspartate Amino Transferase 27 U/L (14-36); Blood Urea Nitrogen 22 mg/dL (7-17); Calcium 8.2 mg/dL (8.4-10.2); Carbon Dioxide 30 mmol/L (22-30); Chloride 100 mmol/L (98-107); Estimated CRCL calculation 38 ml/min; Estimated Glomerular Filt Rate 60; Glucose 101 mg/dL (65-110); Magnesium 1.5 mg/dL (1.6-2.3); Potassium 4.1 mmol/L (3.4-5.0); Sodium 133 mmol/L (137-145)
--- NOTE | 2021-11-11 09:21 | PM.PNORT ---
Progress Note: A&P Assessment and Plan (1) Closed intertrochanteric fracture of left hip: Code(s): S72.142A - Displaced intertrochanteric fracture of left femur, initial encounter for closed fracture Status: Acute Assessment and Plan: POD #2 : Left Hip Alicja Insertion Continue PT/OT. WBAT. Walker. HIGH FALL RISK. Continue pain control. Ice hip. Protect skin. DVT prophylaxis with Heparin. SCDs. Incentive Spirometry Use reviewed. Monitor Dressing. Change prior to discharge. Bowel Regimen. Dispo: SNF when medically cleared. Subjective Subjective Date/Time Seen: 11/11/21 09:21 Post Op day: 2 Interval history: POD #2: INSERTION? ALICJA LEFT HIP Patient doing well. Up in chair at time of exam. Complaints of pain, lateral hip. Well controlled with pain medication. Review of Systems Review of Systems: All systems reviewed & are unremarkable except as noted in HPI and below Exam Const: General: cooperative and comfortable Nutritional Appearance: average body habitus Orientation/consciousness: patient oriented x3 HENMT: Head: normal to inspection and No palpable skull fracture present Ears: hearing grossly normal bilaterally and external ears normal General nose exam: Normal external nose present, Normal nares present and Normal nasal mucous membranes and turbinates present Face and sinus: normal facial exam Mouth: Yes Normal oral and palatal mucosa present Teeth and gingiva: dentition normal Eyes: General: appearance normal, both eyes and all related structures Sclera: sclerae normal Pupils: Equal, round and reactive pupils present Neck: Neck: normal visual inspection and full ROM Resp: Effort & Inspection: normal respiratory effort and able to speak in complete sentences Cardio: Jugular venous distension: no JVD Rate: regular rate Rhythm: regular rhythm GI: Inspection: normal to inspection GI Palp: No abdominal tenderness Skin: General skin exam: normal color and no rashes or lesions noted Wounds: no wounds Neuro: General: patient oriented x3 Cranial nerves: Yes Equal, round and reactive pupils present and Yes Normal hearing present Cognition (Neuro): normal cognition Speech: normal speech Sensory Exam: normal sensation Extrem: Left lower extremity: hip/thigh Details: tenderness Location: of the hip Location: laterally, anteromedially and over the great trochanter, swelling Location: of the hip and of the proximal upper leg and abnormal ROM Details: pain with active ROM Details: with internal rotation and with external rotation and pain with passive ROM Details: with internal rotation and with external rotation, ankle (weakness with dorsiflexion/plantarflexion, Lymphadema wraps in place ) Details: normal to inspection, no edema and pitting edema; no tenderness and no swelling and foot Details: normal capillary refill, edema, vascular exam Details: dorsalis pedis pulse present and motor-sensory exam light-touch normal Other: History of MS with LLE weakness, left foot/ankle weakness. No full foot drop noted. Psych: Appearance: grossly normal Objective Data Vital Signs Vital Signs: Vital Signs - 24 hr 11/10/21 09:59 11/10/21 10:15 11/10/21 10:15 Temperature 37.3 C 37.3 C 37.3 C Pulse Rate 87 87 87 Respiratory Rate 16 14 14 Blood Pressure 97/30 L 100/29 L 100/29 L Pulse Oximetry 95 96 96 Oxygen Delivery 11/10/21 11:15 11/10/21 12:15 11/10/21 12:40 Temperature 37.3 C 37.2 C 37.3 C Pulse Rate 84 90 87 Respiratory Rate 14 14 16 Blood Pressure 101/33 L 101/26 L 113/34 L Pulse Oximetry 96 96 95 Oxygen Delivery 11/10/21 12:50 11/10/21 13:38 11/10/21 13:30 Temperature 36.9 C Pulse Rate 88 Respiratory Rate 16 Blood Pressure 130/50 L 158/62 H 160/72 H Pulse Oximetry 97 Oxygen Delivery 11/10/21 15:54 11/10/21 17:55 11/10/21 20:00 Temperature 37.3 C Pulse Rate 88 88 Respiratory Rate 16 16 Blood Pressure 145/54 H 110/52 L Pulse Oximetry 95 95 Ox
[2021-11-11 10:05] VITALS: BP 121/43; PULSE 83; RESP 16; TEMP 36.3; O2SAT 97
[2021-11-11 14:05] VITALS: BP 137/49; PULSE 85; RESP 18; TEMP 36.9; O2SAT 95
--- NOTE | 2021-11-11 17:01 | PM.IMPN ---
Progress Note: A&P Assessment and Plan (1) Closed intertrochanteric fracture of left hip: Code(s): S72.142A - Displaced intertrochanteric fracture of left femur, initial encounter for closed fracture Status: Acute Assessment and Plan: from mechanical fall Orthopedic surgery consulted status post left hip nailing 11/09/2021 (2) Laceration of scalp: Code(s): S01.01XA - Laceration without foreign body of scalp, initial encounter Status: Acute Assessment and Plan: Patient did receive jose while in the emergency room for the laceration to her scalp. These will need to be removed in 7-10 days. (3) Multiple sclerosis: Code(s): G35 - Multiple sclerosis Status: Acute Assessment and Plan: Patient follows at [facility] for her multiple sclerosis. Patient states she has not been on medications for a few years since medications were discontinued secondary to age and interactions with other medications. (4) Hypertension: Code(s): I10 - Essential (primary) hypertension Status: Acute Assessment and Plan: resume home medication which include lisinopril and metolazone and indapamide (5) Postoperative anemia: Code(s): D64.9 - Anemia, unspecified Status: Acute (6) Lymphedema: Code(s): I89.0 - Lymphedema, not elsewhere classified Status: Acute Plan chronic lymphedema left lower extremity complained of pain today. Venous duplex order to rule out DVT. Anxiety depression Multiple sclerosis Hypertension Hypo thyroidism DVT prophylaxis heparin subQ will hold due to acute postoperative anemia Acute postoperative anemia hemoglobin 6.6 On 11/10. No other signs of bleeding seen. Likely postoperative anemia will transfuse 1 unit of PRBC 11/10recheck and monitor. Vitals stable appropriate rise in today 11/11/2021. Recheck and monitor Additional Plan Subjective Date/time seen: 11/11/21 17:01 Interval history: HPI:MS. Cunha is an 81-year-old female who presented to the emergency room after falling today.? Patient states that she lost her balance while walking with her walker and fell.? Patient states that she was diagnosed with multiple sclerosis in 1977 and has not been able to utilize her left lower extremity very well for quite some time.? Patient denies any lightheadedness, dizziness, syncopal, or near syncopal episodes.? Patient denies any palpitations, chest discomfort, or shortness of breath.? Upon evaluation in emergency room patient was noted to have a laceration to the back of her left head.? Patient was also complaining of left hip pain.? Patient does have a known history of chronic lymphedema to the left lower extremity for which she has been receiving weekly dressing changes.? Patient states last time she had her dressing changed to her left lower extremity was on Monday of last week.? Upon evaluation in emergency room patient was noted to have an acute left intratrochanteric hip fracture.? Patient underwent CT of the head that showed large left parietal scalp hematoma without acute intracranial abnormality and received 7 jose. 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 Patient states that she follows at [facility] for her multiple sclerosis. 11/09/2021 Patient seen postop. she is working with physical therapy and set to the chair. Complains of pain in her left hip. Denies any chest pain or shortness of breath 11/10/2021 postoperative day 1. Complain of left lower extremity pain. Reports it might be because of the pump that she had. She has history of left lower leg lymphedema. Denies any chest pain or shortness of breath. Labs were reviewed. She is getting 1 unit of PRBC today 11/11/2021 postoperative date 2. Complains of the
[2021-11-11 17:58] VITALS: BP 140/51; PULSE 88; RESP 18; TEMP 37.1; O2SAT 96
[2021-11-11 22:00] VITALS: BP 102/32; PULSE 83; RESP 16; TEMP 36.8; O2SAT 100
[2021-11-12] VITALS (8 sets, daily range): BP systolic 100–134; BP diastolic 40–50; PULSE 82–88; RESP 16–20; TEMP 36.3–37.1; O2SAT 94–99
[2021-11-12 05:32] LABS: Basophils Percent Auto 0.4 % (0.2-1.2); Eosinophils Absolute Auto 0.5 K/mm3 (0-0.3); Eosinophils Percent Auto 5.1 % (0-4.4); Hematocrit 24.4 % (37.0-47.0); Hemoglobin 8.1 g/dL (12.0-15.0); Immature Granulocyte Absolute 0.04 K/mm3 (0.00-0.031); Immature Granulocyte Percent A 0.4 % (0-0.5); Lymphocytes Absolute Auto 1.95 K/mm3 (0.9-3.2); Mean Corpuscular HGB Conc 33.2 g/dl (32-36); Mean Corpuscular Volume 90.4 fl (80-100); Mean Platelet Volume 9.5 fl (7.4-10.4); Neutrophils Absolute Auto 5.8 K/mm3 (1.3-6.7); Neutrophils Percent Auto 62.1 % (45.5-73.1); Platelet Count Result 256 k/mm3 (150-375); Red Cell Distribution Width 13.9 % (11.5-14.5); White Blood Count 9.3 K/mm3 (4.5-10.0)
[2021-11-12 05:44] LABS: Alanine Aminotransferase 13 U/L (6-35); Albumin Level 2.6 g/dL (3.5-5.1); Alkaline Phosphatase 60 U/L (38-126); Anion Gap 3 mmol/L (8-16); Aspartate Amino Transferase 25 U/L (14-36); Bilirubin,Total 0.9 mg/dL (0.2-1.3); Blood Urea Nitrogen 28 mg/dL (7-17); Calcium 7.9 mg/dL (8.4-10.2); Carbon Dioxide 31 mmol/L (22-30); Chloride 99 mmol/L (98-107); Estimated CRCL calculation 38 ml/min; Estimated Glomerular Filt Rate 60; Glucose 106 mg/dL (65-110); Magnesium 1.6 mg/dL (1.6-2.3); Potassium 3.9 mmol/L (3.4-5.0); Sodium 133 mmol/L (137-145)
[2021-11-12] MEDS: LEVOTHYROXINE SODIUM 125 MCG TABLET PO (06:07)
[2021-11-12] MEDS: HYDROcodone/acetaminophen (*CRX) 5-325 MG TABLET 1 TAB PO ×3 (06:41→19:40)
[2021-11-12] MEDS: SENNA/DOCUSATE SODIUM TABLET 2 TAB PO (08:39)
[2021-11-12] MEDS: ESCITALOPRAM OXALATE 10 MG TABLET 20 MG PO (08:39)
[2021-11-12] MEDS: ONDANSETRON INJ 4 MG/2 ML VIAL IV PUSH ×2 (09:43→19:40)
--- NOTE | 2021-11-12 10:12 | PM.IMPN ---
Progress Note: A&P Assessment and Plan (1) Closed intertrochanteric fracture of left hip: Code(s): S72.142A - Displaced intertrochanteric fracture of left femur, initial encounter for closed fracture Status: Acute Assessment and Plan: from mechanical fall Orthopedic surgery consulted status post left hip nailing 11/09/2021 Will remove Bailey catheter today (2) Laceration of scalp: Code(s): S01.01XA - Laceration without foreign body of scalp, initial encounter Status: Acute Assessment and Plan: Patient did receive jose while in the emergency room for the laceration to her scalp. These will need to be removed in 7-10 days. (3) Multiple sclerosis: Code(s): G35 - Multiple sclerosis Status: Acute Assessment and Plan: Patient follows at [facility] for her multiple sclerosis. Patient states she has not been on medications for a few years since medications were discontinued secondary to age and interactions with other medications. (4) Hypertension: Code(s): I10 - Essential (primary) hypertension Status: Acute Assessment and Plan: resume home medication which include lisinopril and metolazone and indapamide, currently on hold due to lowish blood pressure (5) Postoperative anemia: Code(s): D64.9 - Anemia, unspecified Status: Acute Assessment and Plan: Acute postoperative anemia hemoglobin 6.6 On 11/10. No other signs of bleeding seen. Likely postoperative anemia will transfuse 1 unit of PRBC 11/10. H&H remains stable today after transfusion. (6) Lymphedema: Code(s): I89.0 - Lymphedema, not elsewhere classified Status: Acute (7) Nausea: Code(s): R11.0 - Nausea Status: Acute Assessment and Plan: Postoperative Likely ileus Check x-ray abdomen Zofran as needed and supportive treatment Bowel regimen continue Plan chronic lymphedema left lower extremity complained of pain today. Venous duplex order to rule out DVT. Anxiety depression Multiple sclerosis Disposition: Patient needs rehabilitation. Daughter however wants to take her back home. Hypo thyroidism DVT prophylaxis heparin subQ will hold due to acute postoperative anemia Additional Plan Subjective Date/time seen: 11/12/21 10:12 Interval history: HPI:MS. Cunha is an 81-year-old female who presented to the emergency room after falling today.? Patient states that she lost her balance while walking with her walker and fell.? Patient states that she was diagnosed with multiple sclerosis in 1977 and has not been able to utilize her left lower extremity very well for quite some time.? Patient denies any lightheadedness, dizziness, syncopal, or near syncopal episodes.? Patient denies any palpitations, chest discomfort, or shortness of breath.? Upon evaluation in emergency room patient was noted to have a laceration to the back of her left head.? Patient was also complaining of left hip pain.? Patient does have a known history of chronic lymphedema to the left lower extremity for which she has been receiving weekly dressing changes.? Patient states last time she had her dressing changed to her left lower extremity was on Monday of last week.? Upon evaluation in emergency room patient was noted to have an acute left intratrochanteric hip fracture.? Patient underwent CT of the head that showed large left parietal scalp hematoma without acute intracranial abnormality and received 7 jose. 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 Patient states that she follows at [facility] for her multiple sclerosis. 11/09/2021 Patient seen postop. she is working with physical therapy and set to the chair. Complains of pain in her left hip. Denies any chest pain or s
--- NOTE | 2021-11-12 10:54 | PM.PNORT ---
Progress Note: A&P Assessment and Plan (1) Closed intertrochanteric fracture of left hip: Code(s): S72.142A - Displaced intertrochanteric fracture of left femur, initial encounter for closed fracture Status: Acute Assessment and Plan: POD #3 : Left Hip troch nail Continue PT/OT. WBAT. Walker. HIGH FALL RISK. Continue pain control. Ice hip. Protect skin. DVT prophylaxis with Heparin. Aspirin at dicharge SCDs. Incentive Spirometry Use reviewed. Monitor Dressing. Change prior to discharge. Bowel Regimen. Dispo: SNF when medically cleared. Subjective Subjective Date/Time Seen: 11/12/21 10:54 Post Op day: 3 Principal diagnosis: Left hip intertrochanteric fracture Interval history: Patient doing well. Up in chair at time of exam. Complaints of pain, lateral hip. Well controlled with pain medication. Exam Const: General: cooperative and comfortable Nutritional Appearance: average body habitus Orientation/consciousness: patient oriented x3 HENMT: Head: normal to inspection and No palpable skull fracture present Ears: hearing grossly normal bilaterally and external ears normal General nose exam: Normal external nose present, Normal nares present and Normal nasal mucous membranes and turbinates present Face and sinus: normal facial exam Mouth: Yes Normal oral and palatal mucosa present Teeth and gingiva: dentition normal Eyes: General: appearance normal, both eyes and all related structures Sclera: sclerae normal Pupils: Equal, round and reactive pupils present Neck: Neck: normal visual inspection and full ROM Resp: Effort & Inspection: normal respiratory effort and able to speak in complete sentences Cardio: Jugular venous distension: no JVD Rate: regular rate Rhythm: regular rhythm GI: Inspection: normal to inspection Skin: General skin exam: normal color and no rashes or lesions noted Wounds: no wounds Neuro: General: patient oriented x3 and Unable to assess gait (bedrest ) Cranial nerves: Yes Equal, round and reactive pupils present and Yes Normal hearing present Cognition (Neuro): normal cognition Speech: normal speech Gait exam (Neuro): Unable to assess gait (bedrest ) Sensory Exam: normal sensation Extrem: Right upper extremity: normal to inspection, full ROM and normal capillary refill Left upper extremity: normal to inspection, full ROM and normal capillary refill Right lower extremity: normal to inspection, full ROM, normal capillary refill, hip/thigh Details: normal to inspection and normal ROM; no tenderness and no swelling, knee Details: normal to inspection and normal ROM; no tenderness and no swelling, lower leg (skin discoloration ) Details: non-pitting edema, ankle (+ankle dorsiflexion/plantarflexion, weak ) Details: edema; no tenderness and no swelling and foot Details: normal capillary refill, toes with normal ROM and vascular exam Details: dorsalis pedis pulse present Left lower extremity: hip/thigh Details: tenderness Location: of the hip Location: laterally, anteromedially and over the great trochanter, swelling Location: of the hip and of the proximal upper leg and abnormal ROM Details: pain with active ROM Details: with internal rotation and with external rotation and pain with passive ROM Details: with internal rotation and with external rotation, lower leg (lymphadema wraps in place ) Details: non-pitting edema, ankle (weakness with dorsiflexion/plantarflexion, Lymphadema wraps in place ) Details: normal to inspection, no edema and pitting edema; no tenderness and no swelling and foot Details: normal capillary refill, edema, vascular exam Details: dorsalis pedis pulse present and motor-sensory exam light-touch normal Other: History of MS with LLE weakness, left foot/ankle weakness. No full foot drop noted. Psych: Appearance: grossly normal Objective Data Vital Signs Vital Signs: Vital Signs - 24 hr 11/11/21 14:05 11/11/21 17:58 11/11/21 20:00 Temperature 98.5 F 98
[2021-11-13] MEDS: HYDROcodone/acetaminophen (*CRX) 5-325 MG TABLET 1 TAB PO ×3 (01:23→10:52)
[2021-11-13 03:27] VITALS: BP 111/40; PULSE 80; RESP 17; TEMP 36.4; O2SAT 95
[2021-11-13] MEDS: LEVOTHYROXINE SODIUM 125 MCG TABLET PO (06:02)
[2021-11-13 08:00] VITALS: BP 110/50; RESP 16
[2021-11-13 08:20] LABS: Basophils Percent Auto 0.5 % (0.2-1.2); Eosinophils Absolute Auto 0.4 K/mm3 (0-0.3); Eosinophils Percent Auto 5.5 % (0-4.4); Hematocrit 24.5 % (37.0-47.0); Hemoglobin 7.9 g/dL (12.0-15.0); Immature Granulocyte Absolute 0.03 K/mm3 (0.00-0.031); Immature Granulocyte Percent A 0.4 % (0-0.5); Lymphocytes Absolute Auto 2.02 K/mm3 (0.9-3.2); Lymphocytes Percent Auto 25.8 % (18.3-44.2); Mean Corpuscular HGB Conc 32.2 g/dl (32-36); Mean Corpuscular Hemoglobin 29.5 pg (26-34); Mean Corpuscular Volume 91.4 fl (80-100); Mean Platelet Volume 9.1 fl (7.4-10.4); Monocytes Absolute Auto 0.7 K/mm3 (0.1-0.6); Neutrophils Absolute Auto 4.6 K/mm3 (1.3-6.7); Neutrophils Percent Auto 58.8 % (45.5-73.1); Platelet Count Result 320 k/mm3 (150-375); Red Blood Count 2.68 M/mm3 (4.2-5.4); Red Cell Distribution Width 13.7 % (11.5-14.5); White Blood Count 7.8 K/mm3 (4.5-10.0)
[2021-11-13 08:34] LABS: Alanine Aminotransferase 19 U/L (6-35); Albumin Level 2.8 g/dL (3.5-5.1); Alkaline Phosphatase 64 U/L (38-126); Anion Gap 2 mmol/L (8-16); Aspartate Amino Transferase 31 U/L (14-36); Bilirubin,Total 1.2 mg/dL (0.2-1.3); Blood Urea Nitrogen 29 mg/dL (7-17); Calcium 8.2 mg/dL (8.4-10.2); Carbon Dioxide 32 mmol/L (22-30); Chloride 99 mmol/L (98-107); Estimated CRCL calculation 38 ml/min; Estimated Glomerular Filt Rate 60; Glucose 135 mg/dL (65-110); Magnesium 1.5 mg/dL (1.6-2.3); Potassium 3.9 mmol/L (3.4-5.0); Sodium 133 mmol/L (137-145)
[2021-11-13] MEDS: ESCITALOPRAM OXALATE 10 MG TABLET 20 MG PO (09:19)
[2021-11-13] MEDS: INDAPAMIDE 2.5 MG TABLET PO (09:26)
[2021-11-13] MEDS: lisinopriL 20 MG TABLET 40 MG PO (09:26)
[2021-11-13] MEDS: metOLazone 5 MG TABLET PO (09:26)
[2021-11-13 10:00] VITALS: BP 149/60; PULSE 88; RESP 16; TEMP 36.6; O2SAT 97
--- NOTE | 2021-11-13 10:14 | PM.DS ---
DS: Admitting Diagnosis Discharge Date 11/13/2021 Admitting Diagnosis Hip fracture DS: Discharge Diagnosis Discharge Diagnosis (1) Closed intertrochanteric fracture of left hip: Code(s): S72.142A - Displaced intertrochanteric fracture of left femur, initial encounter for closed fracture Status: Acute Assessment and Plan: from mechanical fall Orthopedic surgery consulted status post left hip nailing 11/09/2021 (2) Laceration of scalp: Code(s): S01.01XA - Laceration without foreign body of scalp, initial encounter Status: Acute Assessment and Plan: Patient did receive jose while in the emergency room for the laceration to her scalp. These will need to be removed in 7-10 days. Follow-up with PCP with regard to this (3) Multiple sclerosis: Code(s): G35 - Multiple sclerosis Status: Acute Assessment and Plan: Patient follows at [facility] for her multiple sclerosis. Patient states she has not been on medications for a few years since medications were discontinued secondary to age and interactions with other medications. (4) Hypertension: Code(s): I10 - Essential (primary) hypertension Status: Acute Assessment and Plan: resume home medication which include lisinopril and metolazone and indapamide, intermittently was held later resumed and tolerating well (5) Postoperative anemia: Code(s): D64.9 - Anemia, unspecified Status: Acute Assessment and Plan: Acute postoperative anemia hemoglobin 6.6 On 11/10. No other signs of bleeding seen. Likely postoperative anemia will transfuse 1 unit of PRBC 11/10. H&H remains stable after transfusion. Repeat in 1 week to ensure stability. (6) Lymphedema: Code(s): I89.0 - Lymphedema, not elsewhere classified Status: Acute (7) Nausea: Code(s): R11.0 - Nausea Status: Acute Assessment and Plan: Postoperative likely medication induced versus constipation related. X-ray abdomen with nonspecific findings. Zofran as needed and supportive treatment Bowel regimen continue Plan chronic lymphedema left lower extremity complained of pain today. Venous duplex order to rule out DVT. Anxiety depression Multiple sclerosis Disposition: Patient needs rehabilitation. Daughter however wants to take her back home. Arranged home health and discharge Hypo thyroidism home medication DVT prophylaxis heparin subQ. Will go on aspirin b.i.d. as delineated by Orthopedics for DVT process DS: Summary Hospital Course Hospital Course: See above Time Spent with Patient Time attestation: Total time spent providing and/or coordinating discharge services: 45 minutes Exam Narrative: Constitutional: Patient is well-nourished in no acute distress. Patient is alert and oriented x3 HEENT: Moist mucous membranes. No scleral icterus. No lymphadenopathy. Neck: No carotid bruits noted no JVD noted Lungs: Lung sounds are clear to auscultation bilaterally. No accessory muscle use. No rhonchi, rales, or wheezes noted. Cardiovascular: Apical pulse is regular rate and rhythm. S1-S2 noted, no S3 or S4 noted. No gallops, murmurs, or rubs noted. Abdomen: Soft, round, and nontender. No palpable masses. Extremities: Patient does have a dressing to her left lower extremity that is dry and intact. Left leg with mild edema some tenderness. Skin: Patient has a laceration with joes intact to the left parietal/occipital area. Neurological: No focal neurological deficits. Cranial nerves II-XII grossly intact. Psychiatric: Cooperative, appropriate mood, and affect DS: Data Data Completed and Pending Labs on day of discharge: Labs from last 24 hours 11/13/21 11/13/21 08:10 08:10 WBC 7.8 RBC 2.68 L Hgb 7.9 L Hct 24.5 L MCV 91.4 MCH 29.5 MCHC 32.2 RDW 13.7 Plt Count 320 MPV 9.1 Immature Gran % (Auto) 0.4 Neut % (Auto) 58.8 Lymph
--- NOTE | 2021-11-13 10:44 | PM.PNORT ---
Progress Note: A&P Assessment and Plan (1) Closed intertrochanteric fracture of left hip: Code(s): S72.142A - Displaced intertrochanteric fracture of left femur, initial encounter for closed fracture Status: Acute Assessment and Plan: POD #4 : Left Hip troch nail Continue PT/OT. WBAT. Walker. HIGH FALL RISK. Continue pain control. Ice hip. Protect skin. DVT prophylaxis with Heparin. Aspirin at dicharge SCDs. Incentive Spirometry Use reviewed. Monitor Dressing. Change prior to discharge. Bowel Regimen. Dispo: Ok for SNF today. Subjective Subjective Date/Time Seen: 11/13/21 10:44 Post Op day: 4 Principal diagnosis: Left hip intertrochanteric fracture Interval history: Patient doing well. Up in chair at time of exam. Complaints of pain, lateral hip. Well controlled with pain medication. Exam Const: General: cooperative and comfortable Nutritional Appearance: average body habitus Orientation/consciousness: patient oriented x3 HENMT: Head: normal to inspection and No palpable skull fracture present Ears: hearing grossly normal bilaterally and external ears normal General nose exam: Normal external nose present, Normal nares present and Normal nasal mucous membranes and turbinates present Face and sinus: normal facial exam Mouth: Yes Normal oral and palatal mucosa present Teeth and gingiva: dentition normal Eyes: General: appearance normal, both eyes and all related structures Sclera: sclerae normal Pupils: Equal, round and reactive pupils present Neck: Neck: normal visual inspection and full ROM Resp: Effort & Inspection: normal respiratory effort and able to speak in complete sentences Cardio: Jugular venous distension: no JVD Rate: regular rate Rhythm: regular rhythm GI: Inspection: normal to inspection Skin: General skin exam: normal color and no rashes or lesions noted Wounds: no wounds Neuro: General: patient oriented x3 and Unable to assess gait (bedrest ) Cranial nerves: Yes Equal, round and reactive pupils present and Yes Normal hearing present Cognition (Neuro): normal cognition Speech: normal speech Gait exam (Neuro): Unable to assess gait (bedrest ) Sensory Exam: normal sensation Extrem: Right upper extremity: normal to inspection, full ROM and normal capillary refill Left upper extremity: normal to inspection, full ROM and normal capillary refill Right lower extremity: normal to inspection, full ROM, normal capillary refill, hip/thigh Details: normal to inspection and normal ROM; no tenderness and no swelling, knee Details: normal to inspection and normal ROM; no tenderness and no swelling, lower leg (skin discoloration ) Details: non-pitting edema, ankle (+ankle dorsiflexion/plantarflexion, weak ) Details: edema; no tenderness and no swelling and foot Details: normal capillary refill, toes with normal ROM and vascular exam Details: dorsalis pedis pulse present Left lower extremity: hip/thigh Details: tenderness Location: of the hip Location: laterally, anteromedially and over the great trochanter, swelling Location: of the hip and of the proximal upper leg and abnormal ROM Details: pain with active ROM Details: with internal rotation and with external rotation and pain with passive ROM Details: with internal rotation and with external rotation, lower leg (lymphadema wraps in place ) Details: non-pitting edema, ankle (weakness with dorsiflexion/plantarflexion, Lymphadema wraps in place ) Details: normal to inspection, no edema and pitting edema; no tenderness and no swelling and foot Details: normal capillary refill, edema, vascular exam Details: dorsalis pedis pulse present and motor-sensory exam light-touch normal Other: History of MS with LLE weakness, left foot/ankle weakness. No full foot drop noted. Psych: Appearance: grossly normal Objective Data Vital Signs Vital Signs: Vital Signs - 24 hr 11/12/21 14:00 11/12/21 18:00 11/12/21 19:21 Temperature 98 F 97.5 F L 97.3
== END 2021-11-13 14:50 | disposition home health service (06) | DRG 481 ==
LOC: ANHED 15:37 → ANH2MED 16:05
PROVIDERS: Orthopaedic Surgery; Admitting Provider Student in an Organized Health Care Education/Training Program; Emergency Provider Emergency Medicine; PCP Family Medicine Adolescent Medicine; Visit Provider Internal Medicine
PROC: 0QS734Z Reposition Left Upper Femur with Internal Fixation Device, Percutaneous Approach (ICD-10-PCS; CPT 27245; principal; 2021-11-09 12:00)
DX: S72.142A Displaced intertrochanteric fracture of left femur, initial encounter for closed fracture (principal); D62 Acute posthemorrhagic anemia; S01.01XA Laceration without foreign body of scalp, initial encounter; W01.0XXA Fall on same level from slipping, tripping and stumbling without subsequent striking against object, initial encounter; G35 Multiple sclerosis; I10 Essential (primary) hypertension; R11.0 Nausea; T50.995A Adverse effect of other drugs, medicaments and biological substances, initial encounter; K59.00 Constipation, unspecified; Z20.822 Contact with and (suspected) exposure to COVID-19; M81.0 Age-related osteoporosis without current pathological fracture; F41.1 Generalized anxiety disorder; K21.9 Gastro-esophageal reflux disease without esophagitis; E03.9 Hypothyroidism, unspecified; N32.81 Overactive bladder; I89.0 Lymphedema, not elsewhere classified; I87.2 Venous insufficiency (chronic) (peripheral); M48.061 Spinal stenosis, lumbar region without neurogenic claudication
CPT/HCPCS: 12002; 36415; 36430; 70450; 71045; 72125; 73502; 74018; 80048; 80053; 81001; 83735; 83880; 85025; 85610; 85730; 86850; 86900; 86901; 86920; 90471; 90715; 93005; 93971; 96365; 96375; 96376; 97110; 97162; 97167; 97530; 97535; 99285; A9270; C1713; C9803; G0378; J0131; J0690; J1100; J1644; J2270; J2405; J2704; J3010; J3480; J7050; J7120; P9016; U0003; U0005

== ENCOUNTER 2021-11-19 14:53 | Outpatient (NON) | payer OTHER, SELFPAY ==
[2021-11-19 19:57] LABS: Basophils Absolute Auto 0.1 K/mm3 (0.0-0.1); Basophils Percent Auto 0.6 % (0.2-1.2); Eosinophils Absolute Auto 0.4 K/mm3 (0-0.3); Eosinophils Percent Auto 3.8 % (0-4.4); Hematocrit 26.5 % (37.0-47.0); Hemoglobin 8.1 g/dL (12.0-15.0); Immature Granulocyte Absolute 0.04 K/mm3 (0.00-0.031); Immature Granulocyte Percent A 0.4 % (0-0.5); Lymphocytes Absolute Auto 2.08 K/mm3 (0.9-3.2); Mean Corpuscular HGB Conc 30.6 g/dl (32-36); Mean Corpuscular Hemoglobin 28.9 pg (26-34); Mean Corpuscular Volume 94.6 fl (80-100); Mean Platelet Volume 8.8 fl (7.4-10.4); Monocytes Absolute Auto 0.8 K/mm3 (0.1-0.6); Monocytes Percent Auto 7.6 % (2.6-8.5); Neutrophils Absolute Auto 6.6 K/mm3 (1.3-6.7); Neutrophils Percent Auto 66.6 % (45.5-73.1); Platelet Count Result 650 k/mm3 (150-375); White Blood Count 9.9 K/mm3 (4.5-10.0)
[2021-11-19 20:14] LABS: Alanine Aminotransferase 23 U/L (6-35); Albumin Level 3.1 g/dL (3.5-5.1); Alkaline Phosphatase 132 U/L (38-126); Anion Gap 3 mmol/L (8-16); Aspartate Amino Transferase 38 U/L (14-36); Bilirubin,Total 0.5 mg/dL (0.2-1.3); Blood Urea Nitrogen 35 mg/dL (7-17); Calcium 8.6 mg/dL (8.4-10.2); Carbon Dioxide 30 mmol/L (22-30); Chloride 105 mmol/L (98-107); Estimated Glomerular Filt Rate 48; Glucose 89 mg/dL (65-110); Potassium 4.1 mmol/L (3.4-5.0); Sodium 138 mmol/L (137-145)
== END 2021-11-19 14:54 | disposition home or self-care (01) ==
PROVIDERS: PCP Family Medicine Adolescent Medicine; Visit Provider Physician Assistant
DX: D64.9 Anemia, unspecified (principal); R11.0 Nausea; I10 Essential (primary) hypertension
CPT/HCPCS: 36415; 80053; 85025

== ENCOUNTER 2022-09-07 14:12 | Outpatient (NON) | payer OTHER, SELFPAY ==
[2022-09-07 15:05] LABS: Alanine Aminotransferase 21 U/L (6-35); Albumin Level 3.5 g/dL (3.5-5.1); Alkaline Phosphatase 73 U/L (38-126); Anion Gap 5 mmol/L (8-16); Aspartate Amino Transferase 28 U/L (14-36); Bilirubin,Total 0.6 mg/dL (0.2-1.3); Blood Urea Nitrogen 21 mg/dL (7-17); Calcium 8.6 mg/dL (8.4-10.2); Carbon Dioxide 32 mmol/L (22-30); Chloride 97 mmol/L (98-107); Estimated Glomerular Filt Rate > 60; Glucose 83 mg/dL (65-110); Potassium 3.8 mmol/L (3.4-5.0); Sodium 134 mmol/L (137-145)
[2022-09-07 15:07] LABS: Hemoglobin 10.9 g/dL (12.0-15.0); Mean Corpuscular HGB Conc 31.1 g/dl (32-36); Mean Platelet Volume 8.8 fl (7.4-10.4); Platelet Count Result 501 k/mm3 (150-375); Red Blood Count 3.89 M/mm3 (4.2-5.4); Red Cell Distribution Width 15.7 % (11.5-14.5); White Blood Count 7.5 K/mm3 (4.5-10.0)
== END 2022-09-07 14:13 | disposition home or self-care (01) ==
PROVIDERS: PCP Family Medicine Adolescent Medicine; Visit Provider Family Medicine Adolescent Medicine
DX: I87.2 Venous insufficiency (chronic) (peripheral) (principal)
CPT/HCPCS: 80053; 84443; 85027

== ENCOUNTER 2022-10-26 15:00 | Outpatient (NON) | payer OTHER, SELFPAY ==
[2022-10-27 13:27] LABS: Thyroid Stimulating Hormone 0.051 uIU/mL (0.465-4.680)
== END 2022-10-26 15:01 | disposition home or self-care (01) ==
LOC: HOME HLTH 15:04
PROVIDERS: PCP Family Medicine Adolescent Medicine; Visit Provider Family Medicine Adolescent Medicine
DX: R94.6 Abnormal results of thyroid function studies (principal); E03.9 Hypothyroidism, unspecified
CPT/HCPCS: 84443